=== PATIENT | male | born 1955 | race Caucasian/White ===

== ENCOUNTER → 2017-04-27 | Outpatient (CLI) | payer BC | LOC: GMAB 11:03 | PROVIDERS: ATTEND Family Medicine | DX: Z00.01 Encounter for general adult medical examination with abnormal findings (principal); R94.5 Abnormal results of liver function studies ==

== ENCOUNTER → 2017-05-02 | Outpatient (CLI) | payer BC ==
--- NOTE | 2017-05-06 15:01 | US ---
EXAM DESCRIPTION: Liver CLINICAL HISTORY: ELEVATED LFT COMPARISON: None TECHNIQUE: Routine sonographic images of the right upper quadrant of the abdomen were acquired and submitted for review. FINDINGS: Liver: Size- normal measuring approximately 15 cm. Echogenicity- mild diffuse increased echogenicity is present. Mass- none Bile ducts- intrahepatic and extrahepatic bile ducts not dilated with common bile duct measuring 4 mm. Gallbladder: normal Pancreas: head and body appear normal; tail obscured by bowel gas Right kidney: normal Aorta & Inferior vena cava: visualized portions appear normal Ascites: none IMPRESSION: Mild diffuse hepatic steatosis. Electronically signed by: Nathaniel Benjamin MD 05/06/2017 2:59 PM [employer]
== END ==
LOC: US 08:39
PROVIDERS: ATTEND Family Medicine
DX: R94.5 Abnormal results of liver function studies (principal); K76.0 Fatty (change of) liver, not elsewhere classified

== ENCOUNTER → 2019-01-23 | Outpatient (CLI) | payer SELFPAY | LOC: GMAE 11:15 | PROVIDERS: ATTEND Family Medicine | DX: Z00.01 Encounter for general adult medical examination with abnormal findings (principal) ==